=== PATIENT | male | born 1970 | race Caucasian/White ===

== ENCOUNTER 2016-12-27 18:41 | Inpatient (IN) ==
[~2016-12-27 18:41] MED LIST: M.V.I.-12 10 ML, FOLIC ACID 1 MG, MAGNESIUM SULFATE 1 GM, THIAMINE 100 MG in NS 1,000 ML IV ONE
[2016-12-27] MEDS ORDERED: PHENERGAN IV ONE (18:52)
[2016-12-27] MEDS ORDERED: SODIUM CHLORIDE 0.9% INJ ONE (18:52)
[2016-12-27] MEDS ORDERED: CATAPRES PO ONE (18:53)
[2016-12-27] MEDS ORDERED: ATIVAN IV ONE ×2 (18:53→21:08)
[2016-12-27 21:11] LABS: ALBUMIN 5.2 g/dL (3.5-5.0); POTASSIUM 4.4 mmol/L (3.5-5.1); TOTAL BILIRUBIN 0.79 mg/dL (0.20-1.00); TOTAL PROTEIN 8.7 g/dL (6.3-8.3)
[2016-12-27] MEDS ORDERED: ATIVAN IM ONE (21:18)
--- NOTE | 2016-12-27 21:37 | Diag Imaging Result Doc PS360 ---
EXAM: CT HEAD W/O CONTRAST INDICATION: encephalopathy TECHNIQUE: Dose reduction protocol was used. COMPARISON: 04/16/2015 FINDINGS: There is no definite acute infarct given the limited sensitivity of CT versus MRI. There is no discrete intracranial mass, mass effect, or intracranial hemorrhage. The surrounding soft tissues and bony structures are essentially unremarkable. IMPRESSION: No evidence of acute intracranial pathology. Electronically signed by Clint Terrazas 12/27/2016 9:35 PM
[2016-12-27] MEDS ORDERED: ZYPREXA IM ONE ×2 (22:19→23:19)
[2016-12-27] MEDS ORDERED: STERILE WATER INJ. ONE (22:37)
[2016-12-27] MEDS ORDERED: NS 1,000 ML IV ONE (22:37)
[2016-12-27 22:38] LABS: BASO% 0.1 % (0.0-0.8); EOS# 0.01 X1000 (0.0-0.7); HEMATOCRIT 51.8 % (42.0-52.0); HEMOGLOBIN 18.2 g/dL (14.0-18.0); IMM GRAN# 0.09 X1000 (0.0-0.04); IMM GRAN% 0.4 % (0.0-0.5); LYMPH# 0.93 X1000 (1.2-3.4); LYMPH% 3.7 % (20.5-51.1); MANUAL DIFF NEEDED? YES; MCH 29.7 PG (27-31); MCHC 35.1 g/dL (33-37); MCV 84.5 FL (81-99); MONO# 1.64 X1000 (0.11-0.59); MONO% 6.5 % (1.7-9.3); MPV 11.2 FL (7.4-10.4); NEUT% 89.3 % (42.2-75.2); PLT 313 X1000 (130-400); RBC 6.13 XMIL (4.7-6.1)
[2016-12-27 22:55] LABS: BANDS 1 % (0-1); LYMPHS 2 % (21-51); MONO 6 % (1-9)
[2016-12-27] MEDS ORDERED: THIAMINE 100 MG in NS 50 ML IV ONE (23:16)
[2016-12-27] MEDS ORDERED: VALIUM IM ONE (23:17)
[2016-12-27] MEDS ORDERED: HALDOL IV ONE (23:28)
[2016-12-27] MEDS ORDERED: CATAPRES-TTS-1 TD ONE (23:44)
[2016-12-27] MEDS ORDERED: COMPAZINE IV PRN (23:44)
[2016-12-28] MEDS ORDERED: VALIUM IV ONE (00:28)
[2016-12-28] MEDS ORDERED: PHENOBARBITAL IV ONE (00:30)
[2016-12-28 00:49] LABS: CK-MB 2.12 ng/mL (0.0-5.0)
[2016-12-28] MEDS: NS 1,000 ML IV ONE ×2 (01:25→01:31)
[2016-12-28] MEDS: ROCEPHIN 1 GM in NS 50 ML IV SCH ×2 (01:39→23:38)
[2016-12-28] MEDS: ATIVAN IV PRN ×8 (01:39→23:38)
[2016-12-28 01:50] LABS: FREE T4 1.44 ng/dL (0.93-1.70)
[2016-12-28] MEDS: PROTONIX IV SCH ×2 (02:00→23:37)
--- NOTE | 2016-12-28 02:02 | HISTORY AND PHYSICAL ---
CHIEF COMPLAINT: Nausea, vomiting for 3 days. HISTORY OF PRESENT ILLNESS: This is a very confused 46-year-old male. He is oriented to person but is unable to give any other information. He appears to be having some sort of psychosis with visual and auditory hallucinations. Per his past medical history, he does have a history of paranoia, psychosis, delusions, suicidal and homicidal ideation. All information listed in this history and physical will be from past medical records as the patient was not able to give me any information. He has been previously admitted for a very similar situation to the hospital. At any rate, he came into the emergency room with nausea and vomiting. He was given Phenergan. IV with normal saline was started which the patient to my understanding removed. He appears to have been given 5 mg of Ativan, 10 mg of Zyprexa in the emergency room prior to my interview. During my interview, the patient was incoherent. He could not stay focused on any question and did not say anything of substance. He did state that he took any drugs he had the whenever he had them. A urine drug screen is pending. Laboratory data showed that the patient appears to be severely dehydrated and hemoconcentrated. He has a white blood cell count of 25.05 with a hemoglobin and hematocrit of 18.2 and 51.8 respectively. His sodium is elevated at 149 with a creatinine elevation at 2.2. He appears to have a baseline creatinine of around 1 so this is likely acute dehydration. The patient will be admitted to ICU for further evaluation and treatment. PAST MEDICAL HISTORY: 1. Paranoia. 2. Psychosis. 3. Hypertension. 4. Possible seizure disorder. 5. Delusions. 6. Suicidal ideation and homicidal ideation. PREVIOUS SURGICAL HISTORY: 1. Hernia repair. 2. Colon surgery. SOCIAL HISTORY: This could not be obtained. The patient stated he was not . Also states that he does use alcohol but not a lot. Again, it is unknown how true if any of the information history is true that the patient is saying at this time. He did state that he took various drugs. These included methadone, benzodiazepines, Adderall, but again, a urine drug screen is pending. He states that he does not smoke and has not ever smoked a cigarette. FAMILY HISTORY: Again, this is unknown. The patient was unable to give any information about this. MEDICATIONS: The patient was found with an empty Zanaflex bottle in his pocket. Again, it is unclear if he took these medications or does take these regularly. ALLERGIES: Ultram, Benadryl and Levaquin as well as propoxyphene, all causing unknown reactions. REVIEW OF SYSTEMS: Fourteen point review of systems could not be obtained. The patient did have complaint of nausea and vomiting. Denied other complaints. Other pertinent positives listed above in the HPI. PHYSICAL EXAMINATION: VITAL SIGNS: Temperature 98.3 degrees, pulse 107, current blood pressure is unknown. The patient would not wear a blood pressure cuff. Security was at the bedside during interview. On arrival, blood pressure was 161/115, oxygen saturation was 96% on room air and current oxygen saturation is unknown. GENERAL: Well-nourished male, oriented to person. Appears to have some kind of psychosis or delirium at this time. Is incoherently talking but does not appear to be in any acute distress. HEENT: Head is atraumatic, normocephalic. Pupils are equal, round, reactive to light. They were dilated but were reactive to light. Extraocular eye movements could not be tested as the patient would not follow commands. However, he did track around the room. Oral mucosa was dry. NECK: Supple. No JVD. No thyromegaly. Trachea is midline. CARDIAC: S1-S2 appreciated. No murmurs, gallops, rubs. LUNGS: Clear to auscultation bilaterally. No rhonchi, wheezes or rales. Symmetrical rise and fall with respirations. ABDOMEN: Soft, nondistended, nontender. Bowel sounds present in all 4 quadrants. Normoactive. No pulsatile mass. No organomegaly. EXTREMITIES: No clubbing, cyanosis, or edema. 3+ pedal pulses bilaterally. GENITOURINARY: Patient voids, otherwise deferred. No bladder distention. NEUROLOGICAL: Oriented only to person. Does not follow commands at this time. Is having incoherent thoughts and appears to be having auditory and visual hallucinations. However, no focal or motor deficits were noted. PSYCHIATRIC: Patient's affect appears to be manic. He is displaying signs of psychosis or delirium. He is having visual and auditory hallucinations and will carry on conversation with people who are not in the room. DIAGNOSTIC DATA: CT of the head did not show any acute intracranial process. Laboratory data: WBC 25.05, hemoglobin 18.2, hematocrit 51.8, platelet count 313,000. Sodium 149, potassium 4.4, chloride 104, carbon dioxide 21, BUN 13, creatinine 2.2, glucose 141, calcium 11. UDS, serum alcohol, UA, TSH, T4, vitamin B12, serum acetone are all pending as well as coag studies. ASSESSMENT AND PLAN: 1. Encephalopathy of unknown etiology versus acute psychosis. Encephalopathy differentials include metabolic secondary to acute kidney injury, toxic related to polypharmacy abuse or withdrawal from multiple substances, infectious. However, a source of infection is not known. The patient does have a elevated white blood cell count. However, this could be attributed to hemoconcentration. We will give fluid bolusing x2 L and then maintain normal saline at 150 mL an hour. Recheck a CBC and tomorrow morning. The patient is afebrile and UA is pending. Blood cultures have been drawn. We will review a.m. laboratory data before starting any type of antibiotic treatment at this point. 2. Polypharmacy abuse versus polypharmacy withdrawal. The patient states that he takes multiple substances such as methadone, Adderall and benzodiazepines. However, a urine drug screen is pending and the patient is unable to tell us if he has had any of these medications tonight or in what quantities. He did as noted above have a bottle of Zanaflex in his pocket which was empty. We will order an EKG and then monitor EKGs. We will check a CK profile and troponin. 3. Hypertension. Patient was treated with clonidine in the emergency room. We will place a clonidine TTS 1 patch. We will give additional p.r.n. medications if necessary. 4. Acute kidney injury. Patient's creatinine is 2.2. Baseline creatinine is around 1. We will give as noted above 2 L of fluid bolus. We will continue maintenance fluids normal saline at 150 mL an hour. 5. Hypercalcemia. This will likely resolve with fluid bolusing. We will monitor calcium level. However, the patient appears to be hemoconcentrated. His albumin level is also 5.2. An elevated albumin will cause the patient to appear to have hypercalcemia. This is likely pseudohypercalcemia. The patient will be placed in ICU with q.1 hour vital signs and q.2 hour neuro checks. Restraints have been placed on the patient's profile. If he cannot be chemically sedated, he will be restrained for his own safety. Further recommendations per patient clinical course history. Dictated by XAVIER Burnham for Felix Leblanc MD cc: XAVIER Burnham MD
[2016-12-28 02:10] LABS: URINE CULTURE NEEDED? NO; URINE SOURCE CATH
[2016-12-28 02:15] LABS: BILIRUBIN URINE SMALL (NEGATIVE); BLOOD URINE MODERATE (NEGATIVE); COLOR YELLOW; GLUCOSE URINE TRACE mg/dL (NEGATIVE); LEUKOCYTES URINE NEGATIVE (NEGATIVE); NITRITE URINE NEGATIVE (NEGATIVE); PH URINE 5.5; PROTEIN URINE 200 mg/dL (NEGATIVE); SP GRAVITY URINE 1.028; TURBIDITY URINE HAZY (CLEAR); UROBILINOGEN URINE 2 mg/dL (NORMAL)
[2016-12-28 02:17] LABS: URINE MICRO REVIEW NEEDED? YES
[2016-12-28 02:20] LABS: UR EPITHELIAL CELLS <10 /HPF (<10); URINE BACTERIA NEGATIVE /HPF; URINE RBC 20-40 /HPF (<10); URINE WBC <10 /HPF (<10)
[2016-12-28 02:43] LABS: URINE CASTS GRANULAR PRESENT
[2016-12-28 02:57] LABS: UR AMPHETAMINES QUAL NONE DETECTED (NONE DETECT); UR BARBITUATES QUAL NONE DETECTED (NONE DETECT); UR BENZODIAZEPIN QUAL PRESUMPTIVE POSITIVE (NONE DETECT); UR CANNABINOIDS QUAL NONE DETECTED (NONE DETECT); UR COCAINE QUAL NONE DETECTED (NONE DETECT); UR METHADONE QUAL PRESUMPTIVE POSITIVE (NONE DETECT); UR OPIATES QUAL NONE DETECTED (NONE DETECT); UR OXYCODONE QUAL NONE DETECTED (NONE DETECT); UR PCP QUAL NONE DETECTED (NONE DETECT)
[2016-12-28] MEDS: NS 1,000 ML IV SCH ×5 (04:00→23:37)
[2016-12-28 07:57] LABS: INR 1.14; PROTIME 12.1 Seconds (9.2-11.7); PTT 25.7 Seconds (22.0-36.0)
[2016-12-28 08:07] LABS: BASO% 0.1 % (0.0-0.8); HEMATOCRIT 47.3 % (42.0-52.0); IMM GRAN# 0.09 X1000 (0.0-0.04); IMM GRAN% 0.3 % (0.0-0.5); LYMPH# 1.32 X1000 (1.2-3.4); LYMPH% 4.8 % (20.5-51.1); MANUAL DIFF NEEDED? YES; MCH 29.4 PG (27-31); MCHC 33.8 g/dL (33-37); MCV 86.8 FL (81-99); MONO% 8.4 % (1.7-9.3); MPV 10.6 FL (7.4-10.4); NEUT% 86.4 % (42.2-75.2); PLT 281 X1000 (130-400); RBC 5.45 XMIL (4.7-6.1)
[2016-12-28 08:09] LABS: MAGNESIUM 2.2 mg/dL (1.5-2.7)
[2016-12-28 08:14] LABS: CALCIUM 9.3 mg/dL (8.8-10.2)
[2016-12-28 08:22] LABS: BANDS 2 % (0-1); LYMPHS 4 % (21-51); MONO 4 % (1-9)
[2016-12-28] MEDS: ZOFRAN IV PRN ×2 (09:18→14:36)
--- NOTE | 2016-12-28 09:57 | Diag Imaging Result Doc PS360 ---
EXAM: CHEST-PORTABLE INDICATION: elevated wbc TECHNIQUE: One view COMPARISON: 04/17/2015 FINDINGS: The lungs are grossly clear. There is no discrete pleural fluid collection or pneumothorax. The cardiomediastinal silhouette and central vasculature are grossly unremarkable. IMPRESSION: No evidence of acute pathology by plain radiograph. Electronically signed by Clint Terrazas 12/28/2016 9:55 AM
--- NOTE | 2016-12-28 10:05 | PROGRESS NOTE ---
DATE: 12/28/2016 SUBJECTIVE: Mr. Denton presented with nausea vomiting for over 3 days. He was very confused. He is a 46-year-old, oriented to person, but not able to give information. Appears to have some type of psychosis, visual or auditory hallucination. He does have a history of paranoia and psychosis, delusions, suicidal and homicidal ideation in the past. This was all obtained for past medical records. He was admitted for a similar situation at the hospital in the past. Given Phenergan IV and given 5 mg Ativan and 10 mg Zyprexa in the emergency room. During interview the patient was incoherent, could not stay focused. PAST MEDICAL HISTORY: Reviewed. Paranoia, psychosis, hypertension, possible seizure disorder, delusions, suicidal ideation, history of repair, and apparently colon surgery. LABORATORY: His his urine drug screen was positive for methadone and for benzodiazepines. The rest of his lab, white count elevated at 27,240, hematocrit 47, platelet count 281,000. Chemistries: Sodium 152, potassium 4.0, chloride 111, BUN 19, creatinine 1.5. Chest x-ray is malrotated but lung lamb appear clear. Vasculature unremarkable. ASSESSMENT AND PLAN: 1. Encephalopathy, unknown etiology. He has a history of psychosis. His drug screen was positive for methadone and benzodiazepines and there could be other medications involved. Could be withdrawal from multiple substances. However, source of infection is not known. Patient has an elevated white count. This could be just a leukemoid reaction. We will cover him with broad-spectrum antibiotics for now. 2. Polypharmacy abuse versus polypharmacy withdrawal. He takes multiple substance such as methadone, Adderall, benzodiazepine. He did have a bottle of Zanaflex as well. Hemodynamically he has tachycardia and blood pressure elevated. 3. Hypertension. Will put him on a clonidine patch and will give p.r.n. clonidine as well for elevated blood pressure. 4. Acute kidney injury. Creatinine is 2.2. Baseline is 1. Continue fluids. 5. Hypercalcemia. Continue his fluid. Note that albumin is elevated so likely he is dry and pseudo hypercalcemia. He is requiring four-point restraints. cc: Zachary Dixon MD
[2016-12-28] MEDS: PHENOBARBITAL IV PRN (18:29)
[2016-12-29] MEDS: NS 1,000 ML IV SCH ×5 (04:29→18:55)
--- NOTE | 2016-12-29 06:05 | EKG Report ---
Test Performed on : 12/28/2016 00:43:04 AM Test Reason : check QT interval Blood Pressure : / mmHG Vent. Rate : 099 BPM Atrial Rate : 099 BPM P-R Int : 128 ms QRS Dur : 072 ms QT Int : 424 ms P-R-T Axes : 038 022 064 degrees QTc Int : 544 ms Normal sinus rhythm. Nonspecific ST abnormality Prolonged QT Abnormal ECG When compared with ECG of 18-APR-2015 04:02, ST no longer depressed in Anterior leads Nonspecific T wave abnormality no longer evident in Inferior leads T wave inversion no longer evident in Anterior leads Confirmed by Zack DU, Zachary Adler ([id number]) on 12/29/2016 4:58:45 PM
--- NOTE | 2016-12-29 06:07 | EKG Report ---
Test Performed on : 12/28/2016 07:01:58 AM Test Reason : eval Blood Pressure : / mmHG Vent. Rate : 066 BPM Atrial Rate : 066 BPM P-R Int : 118 ms QRS Dur : 076 ms QT Int : 540 ms P-R-T Axes : 020 043 057 degrees QTc Int : 566 ms Normal sinus rhythm. Nonspecific T wave abnormality Prolonged QT Abnormal ECG When compared with ECG of 28-DEC-2016 00:43, (Unconfirmed) Vent. rate has decreased BY 33 BPM Nonspecific T wave abnormality now evident in Lateral leads Confirmed by Zack DU, Zachary Adler ([id number]) on 12/29/2016 4:59:55 PM
[2016-12-29] MEDS: ATIVAN IV PRN ×5 (08:50→21:24)
--- NOTE | 2016-12-29 09:20 | PROGRESS NOTE ---
DATE: 12/29/2016 HISTORY OF PRESENT ILLNESS: Mr. Bernal, to recall, presented on 12/27/2016. He presented with nausea and vomiting, very confused. He appeared to have some type of psychosis with visual and auditory hallucinations. Past medical history with a history of paranoia, psychosis, delusions, suicide/homicidal ideation. Previously admitted for a similar situation. He was given some Phenergan in the emergency room, given 5 mg of Ativan, 10 mg of Zyprexa. He is incoherent. He required four-point restraint. Today, I reminded him that he was in the hospital. I think he had some limited understanding of that. He is still hallucinating. His thought process is still drifting and requires 4 point restraints. He did have some bradycardia which was sinus bradycardia but his blood pressures remained stable. PHYSICAL EXAMINATION: Vital Signs: Temperature 98.8 degrees, pulse 55, respirations 15, blood pressure 168/95. HEENT: Pupils are equal and round. Lungs: Clear in all lung lamb. Cardiovascular Examination: Regular rhythm and rate without murmur or S3. Abdomen: Soft. Skin: Warm and dry. Is and Os: Urine output 3400 mL. LABORATORY DATA: Lab from yesterday reviewed. Hematocrit was stable. No elevation of white count. Electrolytes looked good. Creatinine is 1.5. It was 2.2 on admission but it is coming down. ASSESSMENT AND PLAN: 1. Encephalopathy, unknown etiology. Suspect medicine induced with psychosis. Seems to be improving. We will continue high-dose benzodiazepines, using phenobarbital as well. He requires 4 point restraints still, at least 2 point restraints at times but I do see some steady improvement in his cognitive process. We did give him a diet. 2. Polypharmacy suspected. He has tested positive for methadone. He has a history of taking Adderall and tested positive for benzodiazepine. I believe he did, or maybe that is his history, looking at toxicology that he was positive for benzodiazepine and positive for methadone. We will continue present fluids. Continue present support. I have him empirically on some Rocephin 1 g every 24 hours but I do not see any evidence of underlying infection so I will stop that. cc: Zachary Dixon MD
[2016-12-29] MEDS: PHENOBARBITAL IV PRN ×3 (10:01→23:15)
[2016-12-29] MEDS ORDERED: BLISTEX MEDICATED BERRY LIP BALM TOP PRN (14:01)
[2016-12-29] MEDS: SODIUM CHLORIDE 0.9% INJ SCH (23:15)
[2016-12-29] MEDS: 1/2 NS 1,000 ML IV SCH (23:15)
[2016-12-29] MEDS: PROTONIX IV SCH (23:15)
[2016-12-30] MEDS: ATIVAN IV PRN ×2 (01:18→22:24)
[2016-12-30] MEDS: 1/2 NS 1,000 ML IV SCH (07:47)
[2016-12-30 10:43] LABS: MANUAL DIFF NEEDED? NO
[2016-12-30 10:54] LABS: BASO% 0.2 % (0.0-0.8); EOS# 0.21 X1000 (0.0-0.7); EOS% 2.4 % (0.0-10.0); HEMATOCRIT 40.6 % (42.0-52.0); HEMOGLOBIN 14.1 g/dL (14.0-18.0); IMM GRAN# 0.02 X1000 (0.0-0.04); IMM GRAN% 0.2 % (0.0-0.5); LYMPH# 1.93 X1000 (1.2-3.4); MCH 30.1 PG (27-31); MCHC 34.7 g/dL (33-37); MCV 86.6 FL (81-99); MONO# 0.82 X1000 (0.11-0.59); MONO% 9.4 % (1.7-9.3); MPV 10.1 FL (7.4-10.4); NEUT% 65.8 % (42.2-75.2); PLT 186 X1000 (130-400); RBC 4.69 XMIL (4.7-6.1)
[2016-12-30] MEDS: D5W 1,000 ML IV SCH ×2 (10:54→17:29)
--- NOTE | 2016-12-30 11:05 | PROGRESS NOTE ---
DATE: 12/30/2016 SUBJECTIVE: Today, Mr. Bernal refers to be doing a little better. Does not have any more nausea and vomiting. Denies any chest pain. No shortness of breath and not any urinary symptoms. Per the nursing staff, he gets agitated every now and then. He is still in 4 point restraint. OBJECTIVE: Vital Signs: Blood pressure is 169/98, pulse is 52, respirations are 20, temperature is 98 degrees. General Examination: Mr. Bernal is a 46-year-old, male. He is in bed. He is not in any distress. HEENT: Mucosa is slightly dry. Anicteric and acyanotic. Neck: Supple. Chest: Good air entry bilaterally. There are no crepitations. No rhonchi. Cardiovascular: Regular rate and rhythm. Abdomen: Soft, nontender. Extremities: No pedal edema. 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 He is oriented to person, to place, and time. The patient follows commands. He denies any hallucinations and denies any delusional thoughts. Laboratory Data: None for today. MEDICATIONS: Have been reviewed. Patient is currently on: 1. P.r.n. Ativan. 2. Zofran 4 mg IV p.r.n. 3. Pantoprazole 40 mg IV daily. 4. Half-normal saline. 5. Compazine 10 mg IV x4 p.r.n. ASSESSMENT: 1. Nausea and vomiting, improved. 2. Visual and auditory hallucinations on presentation, likely due to underlying psychotic disease, seems to have resolved. 3. Acute delirium. This could be multifactorial including electrolyte abnormalities. Patient came in with a sodium of 149 which went up to 152. However, infectious etiologies cannot be excluded. Patient's blood culture is negative and urinalysis was also unremarkable. He is currently not on any antibiotics. 4. Acute kidney injury, improving with hydration. 5. Hypernatremia with hyperchloremia. We are going to switch the fluid to just free water at 125 mL per hour. We will discontinue the chloride containing fluid. PLAN: In general, I think Mr. Bernal is clinically improving. We are going to remove the restraints from the lower extremities. We will going to try him on something to eat. We will do stat labs since we do not have any from yesterday and today, and see how his electrolytes are looking like and adjust therapy as needed. cc: Galo Menchaca MD
[2016-12-30 11:09] LABS: AGAP 14; ALBUMIN 3.8 g/dL (3.5-5.0); ALKALINE PHOSPHATASE 60 U/L (32-122); BUN 13 mg/dL (8-22); CALCIUM 8.8 mg/dL (8.8-10.2); CHLORIDE 99 mmol/L (98-107); COSMO 273; GOT 14 U/L (10-34); GPT 6 U/L (10-44); POTASSIUM 3.7 mmol/L (3.5-5.1); SODIUM 137 mmol/L (136-145); TCO2 24 mmol/L (25-35); TOTAL BILIRUBIN 1.05 mg/dL (0.20-1.00); TOTAL PROTEIN 6.8 g/dL (6.3-8.3)
[2016-12-30] MEDS: PHENOBARBITAL IV PRN (22:24)
[2016-12-30] MEDS: SODIUM CHLORIDE 0.9% INJ SCH (23:06)
[2016-12-30] MEDS: PROTONIX IV SCH (23:06)
[2016-12-31] MEDS: ATIVAN IV PRN ×2 (01:10→03:16)
[2016-12-31] MEDS: D5W 1,000 ML IV SCH (01:38)
[2016-12-31] MEDS: PHENOBARBITAL IV PRN (03:16)
[2016-12-31 08:06] VITALS: BP 132/93
--- NOTE | 2016-12-31 11:51 | PROGRESS NOTE ---
DATE: 12/31/2016 SUBJECTIVE: Today Mr. Bernal referred to be doing a lot better. Has not had any more vomiting or nausea. He is tolerating his diet. The patient did have some concerns that he does not see his very expensive glasses and he thinks that it was left in the ER. The nurses are looking into that. OBJECTIVE: Vital signs: Blood pressure is 132/93, pulse is 63, respirations 18, temperature 97.3 degrees. Patient is saturation is 97% on room air. General: Mr. Bernal is a 46-year-old male. He was actually sitting up on the potty, not in distress. HEENT: Mucosa is pink and moist. Anicteric. Acyanotic. Neck: Supple. Chest: Clear. Cardiovascular: Regular rate and rhythm. Abdomen: Soft. Extremities: No pedal edema. 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 Very conversational. LABORATORY DATA: Have been reviewed from yesterday and they were completely normal. ASSESSMENT: 1. Nausea and vomiting, improved. 2. Polypharmacy and urine toxicology is positive for methadone and benzo's and I think this is probably part of what brought him into the hospital. 3. Acute delirium, likely multifactorial including electrolyte abnormality and drug induced. The patient's electrolytes have been stabilized. He is now completely stable and he is going to be discharged. 4. Acute kidney injury, improved. 5. Hypernatremia/hyperchloremia, resolved. 6. Visual and auditory hallucination on presentation, resolved. In general, I think Mr. Bernal is clinically stable. Came in because of nausea and vomiting, which I think is probably related to medication induced. Went into severe dehydration and acute kidney injury. All of these have been resolved and he is going to be discharged in a very stable condition. cc: Galo Menchaca MD
--- NOTE | 2017-01-01 08:21 | DISCHARGE SUMMARY ---
ADMISSION DATE: 12/27/2016 DISCHARGE DATE: 12/31/2016 CONSULTATIONS: None. PERTINENT PROCEDURES: 1. Head CT showed no evidence of acute intracranial pathology. 2. Chest x-ray showed no evidence of acute pathology. DISCHARGE DIAGNOSES: 1. Nausea and vomiting, improved. 2. Polypharmacy. 3. Urine toxicology positive for methadone and benzodiazepine 4. Acute delirium, multifactorial including electrolyte abnormality and drug induced. Electrolytes have stabilized. The patient is clinically stable and will be discharged today. 5. Acute kidney injury, improved. 6. Hyponatremia, hypochloremia, resolved. 7. Visual and auditory hallucinations on presentation, resolved. HOSPITAL COURSE: Mr. Bernal is a 46-year-old male who carries a past medical history of paranoia, psychosis, hypertension, possible seizure disorder, delusional, suicidal ideation and homicidal ideation. He came into the ED very confused. He was oriented to person only. He was unable to give any other information. He was having some sort of psychosis with visual and auditory hallucinations. He had previously been admitted for a very similar situation. He came to the ED with nausea and vomiting. He was given Phenergan IV with normal saline that the patient removed. He had also been given 5 mg of Ativan and 10 mg Zyprexa prior to his initial interview by the attending. The patient was incoherent. He could not stay focused or answer questions. Laboratory data showed that he appeared to be severely dehydrated and hemoconcentrated. He had a white count of 25, hemoglobin and hematocrit of 12 and 51. Sodium of 149. Creatinine of 2.2. Baseline creatinine was around 1. He was admitted to [facility] initially for encephalopathy of unknown etiology versus acute psychosis and polypharmacy abuse versus polypharmacy withdrawal and aggressively hydrated. He was placed on q. 2 hour neuro checks. His head CT did not show anything acute. His urine tox screen came back positive for methadone and benzodiazepine. He continued to hallucinate in the ICU at one point requiring 4-point restraints. He did have some bradycardia that was sinus, but his blood pressures remained stable. He was continued on p.r.n. Ativan. He did have some improvement in his mentation. He has not had any more nausea or vomiting. He was taken out of his lower extremity restraints. He was initiated on a diet. His electrolytes were adjusted as needed. His acute kidney injury resolved. His severe dehydration has been resolved. His visual and auditory hallucinations have resolved. He is out of his restraints. He is awake, alert , conversational and is appropriate for discharge today. He was in the ICU, however, he remained in the ICU only due to there being no regular beds available. VITAL SIGNS: At time of his discharge, temperature 97.3 degrees, heart rate 63 , respirations 18, blood pressure 132/93, O2 is 97% on room air. DISCHARGE DIET: Healthy heart. DISCHARGE MEDICATIONS: None. The patient came in on no home medications. FOLLOWUP: Mr. Bernal is being discharged home with self-care. He is to follow up with his PCP. He can return to the ED for any worsening of symptoms. Dictated by XAVIER Vazquez for Galo Menchaca MD cc: Galo Menchaca MD Time spent for discharge 32 minutes. [facility]
--- NOTE | 2017-01-26 17:45 | PROVIDER DOCUMENTATION ---
This chart was entered by Jasmine Adams Scribe, acting as scribe for Priscilla Davila MD. HPI-General Adult - General Source: patient <Justin Licea - Last Filed: 12/27/16 22:37> - General Source: patient, EMS, old records - History of Present Illness -Gen Adult Nature of Presenting Problems: Patient is a 46 year old male who presents in the ED via EMS with complaints of nausea/vomiting. EMS states patient was picked up from a pool miner for nausea/ vomiting, and states patient stated he is withdrawing from opiates and muscle relaxers. EMS also states patient was given Zofran en route to ED. Patient states he is withdrawing from Zanaflex, states his last dose was at midnight last night, but states he has had nausea/vomiting over the last 36 hours. He also states he has had decreased PO intake, and states he "walked from [place], [place] to [place], [place] today." He reports history of hypertension, seizures, arthritis, and reports family history of CVA/AR/cancer. Old records reviewed and indicate patient is a chronic Benzodiazepine abuser. Location of Pain/Injury: reports: abdomen Pain Radiation: reports: no radiation Quality of Pain: reports: aching Severity: reports: mild, moderate Onset/Duration: reports: abrupt, 2 days ago Timing: reports: still present Context/Activities at Onset: reports: none Modifying Factors: improves with: nothing Associated Symptoms: reports: loss of appetite, nausea, vomiting. denies: chest pain, diarrhea, shortness of breath Similar Symptoms Previously?: No Recently seen or treated by another doctor?: No <Priscilla Davila - Last Filed: 01/26/17 17:45> - General Stated Complaint: N/V Time Seen by Provider: 12/27/16 18:41 Allergies/Adverse Reactions: Patient Allergies Allergy/AdvReac Type Severity Reaction Status Date / Time propoxyphene Allergy Unknown Unknown Verified 12/27/16 18:53 tramadol HCl * [From Ultram] Allergy Unknown Unknown Verified 12/27/16 18:53 diphenhydramine HCl * Allergy siezures Verified 12/27/16 18:53 [From Benadryl] levofloxacin [From Levaquin] Allergy Unknown Verified 12/27/16 18:53 Review of Systems - Adult - REVIEW OF SYSTEMS - ADULT Constitutional: reports: see HPI <BethelarmidaJustin H - Last Filed: 12/27/16 22:37> - REVIEW OF SYSTEMS - ADULT Constitutional: reports: no symptoms reported Eyes: reports: no symptoms reported Ears, Nose, Mouth & Throat: reports: no symptoms reported Cardiovascular: reports: no symptoms reported. denies: chest pain Respiratory: reports: no symptoms reported. denies: shortness of breath Gastrointestinal: reports: see HPI, abdominal pain, nausea, vomiting. denies: hematemesis, diarrhea Genitourinary: reports: no symptoms reported Musculoskeletal: reports: no symptoms reported Integumentary: reports: no symptoms reported Neurological: reports: no symptoms reported Psychiatric: reports: no symptoms reported Endocrine: reports: no symptoms reported Hematologic/Lymphatic: reports: no symptoms reported Allergic/Immunologic: reports: no symptoms reported All Other Systems: Reviewed and Negative <Priscilla Davila X - Last Filed: 01/26/17 17:45> Past History - Adult - PAST MEDICAL HISTORY-ADULT Review of Records: reports: Nursing Assessment Review <Justin Licea Anna - Last Filed: 12/27/16 22:37> - PAST MEDICAL HISTORY-ADULT Review of Records: reports: Old Records Reviewed, Nursing Assessment Review, Medications Reviewed Major Childhood Illnesses: reports: denies history Cardiovascular: reports: HTN Respiratory: reports: denies history Gastrointestinal: reports: denies history Obstetrical/Gynecological: reports: denies history Genitourinary: reports: denies history Musculoskeletal: reports: denies history Neurological: reports: Seizures/Epilepsy Psychiatric: reports: depression Endocrine/Immune: reports: denies history Other Conditions: reports: denies history - PRIOR SURGERIES/PROCEDURES Surgical/Procedure History: reports: other (left eye surgery) - IMMUNIZATION STATUS Childhood Immunizations: See Nurse Assessment Flu Vaccine: See Nurse Assessment - FAMILY HISTORY Family History: CAD over 55 yo, cancer, CVA/TIA - SOCIAL HISTORY Smoking: cigarettes, less than 1 pack/day Provider spent 3-5 mins advising pt. on dangers of tobacco.: Discussed manners to quit use, and f/u contacts for add'l counseling. Substance Use: benzodiazepines Alcohol Use Frequency: occasionally Living Situation: family <Priscilla Davila - Last Filed: 01/26/17 17:45> Physical Exam-General - CONSTITUTIONAL General Appearance: mild distress, moderate distress - EYES Eyes: PERRL/EOMI, pink conjunctivae - HEAD, EARS, NOSE, MOUTH & THROAT HENMT: normocephalic/atraumatic, moist mucous membranes - NECK Neck: full range of motion, supple - RESPIRATORY Respiratory: chest non-tender, lungs clear - CARDIOVASCULAR Cardiovascular: regular rate, rhythm, no edema, no gallop - GASTROINTESTINAL (ABDOMEN) Abdominal Exam: soft, no organomegaly, no pulsatile mass - LYMPHATIC Lymphatic: no adenopathy - MUSCULOSKELETAL Back Exam: normal inspection Extremity: normal range of motion, non-tender, normal gait - SKIN Integumentary: normal color, normal turgor, warm/dry - NEUROLOGIC Neurologic: grossly normal, no motor/sensory deficits - PSYCHIATRIC Psych/Mental Status: anxious, disheveled, other (Not oriented to place and person .) <Justin Licea H - Last Filed: 12/27/16 22:37> - PHYSICAL EXAM-ADULT Initial Vital Signs Reviewed: Yes - CONSTITUTIONAL General Appearance: alert, no apparent distress - EYES Eyes: PERRL/EOMI, pink conjunctivae - HEAD, EARS, NOSE, MOUTH & THROAT HENMT: normocephalic/atraumatic, moist mucous membranes - NECK Neck: full range of motion, supple - RESPIRATORY Respiratory: chest non-tender, lungs clear, normal breath sounds, no pleuratic chest pain, no respiratory distress, no accessory muscle use - CARDIOVASCULAR Cardiovascular: regular rate, rhythm, no edema, no gallop, no JVD, no murmur - GASTROINTESTINAL (ABDOMEN) Abdominal Exam: soft, no organomegaly, no pulsatile mass - LYMPHATIC Lymphatic: no adenopathy - MUSCULOSKELETAL Back Exam: normal inspection Extremity: normal range of motion, non-tender, normal gait, no pedal edema - SKIN Integumentary: normal color, normal turgor, warm/dry - NEUROLOGIC Neurologic: grossly normal, no motor/sensory deficits - PSYCHIATRIC Psych/Mental Status: normal mood/affect, oriented x 3 <Priscilla Davila X - Last Filed: 01/26/17 17:45> Progress - PLAN OF CARE/RESULTS Progress/Plan/Lab Results: Vital Signs - 8 hr 12/27/16 18:30 Temperature 98.3 F Pulse Rate 107 H Respiratory Rate 17 Blood Pressure 161/115 O2 Sat by Pulse Oximetry 96 Laboratory Results - last 24 hr 12/27/16 20:20 Sodium 149 H Potassium 4.4 Chloride 104 Carbon Dioxide 21 L Anion Gap 24 BUN 13 Creatinine 2.2 H Estimated GFR/1.73 m2 32 BUN/Creatinine Ratio 6 Glucose 141 H Calculated Osmolality 299 Calcium 11.0 H Total Bilirubin 0.79 AST 21 ALT 11 Alkaline Phosphatase 98 Total Protein 8.7 H Albumin 5.2 H Globulin 3.5 Albumin/Globulin Ratio 1.5 Orders Category Date Time Status CT HEAD W/O CONTRAST [CT] Routine Exams 12/27/16 21:08 Completed CBC WITH DIFF [HEME] Stat Lab 12/27/16 18:35 Ordered COMPREHENSIVE METABOLIC PANEL [CHEM] Stat Lab 12/27/16 20:20 Completed Clonidine [Catapres] Med 12/27/16 18:53 Discontinued 0.2 mg PO NOW ONE Lorazepam [Ativan] Med 12/27/16 18:53 Discontinued 1 mg IV NOW ONE Lorazepam [Ativan] Med 12/27/16 21:18 Discontinued 2 mg IM NOW ONE Lorazepam [Ativan] Med 12/27/16 21:08 Discontinued 2 mg IV NOW ONE Mvi [M.v.i.-12] 10 ml Med 12/27/16 18:37 Discontinued Folic Acid 1 mg Magnesium Sulfate 1 gm Thiamine 100 mg 0.9% Sodium Chloride Inj [Ns] 1,000 ml IV NOW Promethazine [Phenergan] Med 12/27/16 18:52 Discontinued 25 mg IV NOW ONE Sodium Chloride 0.9% Med 12/27/16 18:52 Discontinued 10 ml INJ NOW ONE Head CT is negative. There is acute renal failure with possible Rhabdomyolysis. Waiting for the CK result. He has been confused and agitated. Got multiple ativan doses. Giving Zyprexa IM 10 mg. Giving one L fluid bolus. Getting a UDS. Have discussed with Dr. Leblanc the Hospitalist and he kindly agrees to admit him . Result Diagrams: 12/27/16 20:20 12/27/16 20:20 <Justin Licea H - Last Filed: 12/27/16 22:37> - PLAN OF CARE/RESULTS Progress/Plan/Lab Results: Orders Category Date Time Status AMYLASE [CHEM] Stat Lab 12/27/16 18:35 Uncollected CBC WITH DIFF [HEME] Stat Lab 12/27/16 18:35 Ordered CMP [COMPREHENSIVE METABOLIC PANEL] [CHEM] Stat Lab 12/27/16 18:35 Uncollected LIPASE [CHEM] Stat Lab 12/27/16 18:35 Uncollected Mvi [M.v.i.-12] 10 ml Med 12/27/16 18:37 Active Folic Acid 1 mg Magnesium Sulfate 1 gm Thiamine 100 mg 0.9% Sodium Chloride Inj [Ns] 1,000 ml IV NOW Result Diagrams: 12/30/16 10:36 12/30/16 10:36 <Priscilla Davila - Last Filed: 01/26/17 17:45> Departure - Departure Date of Disposition Decision: 12/27/16 Time of Disposition Decision: 22:36 Certified Medical Emergency: Emergent - Critical Care Note This patient required my direct & personal management of CC.: No <Justin Licea - Last Filed: 12/27/16 22:37> - Departure Date of Disposition Decision: 12/27/16 Time of Disposition Decision: 22:36 Certified Medical Emergency: Emergent - Critical Care Note This patient required my direct & personal management of CC.: No <Priscilla Davila - Last Filed: 01/26/17 17:45> - Departure DIAGNOSIS: Drug withdrawal, Seizure, Encephalopathy acute, Psychoses Disposition: ADMITTED INPATIENT 09 Condition: Stable Attestation - Physician/ SIN Attestation Patient care was provided by Advanced Practice Provider:: No The physician spent face to face time with patient:: Yes Advanced Practice Provider documentation review:: Supervising physician onsite and consulted in the evaluation and care of this patient. The physician did have a face to face encounter with the patient. <Justin Licea - Last Filed: 12/27/16 22:37> - Physician/ SIN Attestation Patient care was provided by Advanced Practice Provider:: No The physician spent face to face time with patient:: Yes Advanced Practice Provider documentation review:: Supervising physician onsite and consulted in the evaluation and care of this patient. The physician did have a face to face encounter with the patient. <Priscilla Davila - Last Filed: 01/26/17 17:45> This chart was documented by the indicated scribe, (Jasmine Adams Scribe) and accurately reflects the services I performed and decisions made by , Priscilla Davila MD, as attested by the provider's signature.
== END 2016-12-31 12:06 | disposition home or self-care (01) ==
LOC: ED 18:41 → SUATTDRO 18:42 → ICU 18:42
PROVIDERS: ATTEND Internal Medicine